=== PATIENT | female | born 1990 | race African-American/Black ===

== ENCOUNTER 2017-02-04 10:41 | Emergency (ER) | payer OTHER ==
[~2017-02-04] VITALS: Ht 177.8 cm; Wt 97.5 kg
[~2017-02-04 10:41] MED LIST: ADVAIR DISKUS1 UNIT INH; ALBUTEROL0.09 MG/A1 INH; ALBUTEROL1.25 MG/3 INH; DUONEB 3 MG/3 ML3 ML INH/SOL; PREDNISONE 10MG10 M1 PO; PREDNISONE 20MG20 MG PO; TESSALON PERLE100 MG PO
--- NOTE | 2017-02-04 11:33 | ED NECK/BACK PAIN COMPLAINT ---
History of Present Illness General Chief Complaint: General Adult Stated Complaint: "I CAN NOT MOVE" Source: patient Exam Limitations: no limitations Allergies Coded Allergies: NO KNOWN ALLERGIES (09/25/13) Reconcile Medications Albuterol Sulfate (Albuterol Sulfate Hfa) 0.09 MG/Actuation THANG 2 PUFF INH Q4- 6 PRN PRN SHORTNESS OF BREATH 90 MCG PER PUFF Albuterol Sulfate (Albuterol Sulfate Nebulizer Soln) 1.25 MG/3 ML CHAPO 1 UNIT INH Q4P PRN asthma Albuterol Sulfate/Ipratropiu (Duoneb) 3 MG/3 ML NEB 1 Vial INH/CHAPO 4 TIMES/DAY ASTHMA Benzonatate (Tessalon Perle) 100 MG SGL 1 CAP PO TID PRN COUGH Benzonatate (Tessalon Perle) 100 MG SGL 1 TAB PO TID PRN COUGH Cyclobenzaprine HCl 5 MG TABLET 1 TAB PO TIDPRN PRN MUSCLE SPASMS Fluticasone-Salmeterol (Advair 500-50 Diskus) 1 UNIT UNIT 1 PUFF INH BID asthma Methylprednisolone. (Medrol) 4 MG TAB.DS.PK 1 DP PO AD BACK PAIN 6 on day 1 then reduce by one tablet daily until gone Naproxen (Naprosyn) 500 MG TABLET 1 TAB PO BID PRN PAIN AND INFLAMMATION Prednisone 20 MG TAB 1 TAB PO BID BRONCHOSPASM Prednisone 10 MG TAB 1 TAB PO DAILY ASTHMA 4 TABS PO DAILYS X 3 DAYS 3 TABS X 3 DAYS 2 TABS X 3 DAYS 1 TAB PO X 3 DAYS Triage Note: PT TO ED WITH C/O LEFT LOWER BACK PAIN, STARTED YESTERDAY WITH "SORENESS, WENT TO WORK AND PROGRESSIVELY WORSE TOOK IBUPROFEN AND VICODEN LAST NIGHT, THIS AM WORSE" "IT'S LIKE SPASMS". "WORKED OUT EARLIER IN THE WEEK". Triage Nurses Notes Reviewed? yes : No Patient currently breastfeeds: No HPI: This patient is a 27-year-old female presented to the emergency department today for back pain. The patient reported that she worked out on Sunday or Sunday. She reported that she felt fine afterwards, but yesterday morning woke up feeling some pain in her lower back. She reported that when she woke up this morning she felt like she was unable to move. She reported that the pain gets up to, "1,000,000 out of 10." She reported that the pain is across her lower back, but mostly on the right. It is nonradiating. She reported the pain is sharp and is worse when she tries to walk or stand up straight. She also feels the pain when she is sitting. The pain has been constant since onset this morning. The patient reported that she has been unable to urinate because the pain has been so bad that she can't sit on the toilet. The patient denied any urinary burning, urgency, frequency, or blood in the urine. She denied any bowel or bladder incontinence. No saddle paresthesia. She denied any numbness or tingling in her extremities. No abdominal pain. She did report that she felt nauseous today when the pain was getting bad. No fevers or chills. The patient tried taking 2 ibuprofen tablets and one Vicodin which, "just made me pass out." (PRAVEEN URENA PA-C) Vital Signs & Intake/Output Vital Signs & Intake/Output Vital Signs Date Time Temp Pulse Resp B/P Pulse O2 O2 Flow FiO2 Ox Delivery Rate 02/04 1315 71 16 112/70 99 Room Air ED Intake and Output 02/05 0000 02/04 1200 Intake Total Output Total Balance Patient 215 lb Weight Past History Travel History Traveled to [place] past 21 day No Medical History Any Pertinent Medical History? see below for history Neurological: NONE EENT: NONE Cardiovascular: NONE Respiratory: asthma Gastrointestinal: NONE Hepatic: NONE Renal: NONE Musculoskeletal: NONE Psychiatric: NONE Endocrine: NONE Blood Disorders: SICKLE CELL TRAIT Cancer(s): NONE [employer]/Reproductive: endometriosis Surgical History Surgical History: non-contributory Psychosocial History What is your primary language Slovak Tobacco Use: Never used ETOH Use: denies use Illicit Drug Use: denies illicit drug use Family History Hx Contributory? No (PRAVEEN URENA PA-C) Review of Systems Review of Systems Constitutional: Reports: no symptoms. Eyes: Reports: no symptoms. Ears, Nose, Throat, Mouth: Reports: no symptoms. Respiratory: Reports: no symptoms. Cardiovascular: Reports: no symptoms. Gastrointestinal/Abdominal: Reports: see HPI. Musculoskeletal: Reports: see HPI. Skin: Reports: no symptoms. Neurological/Psychological: Reports: no symptoms. All Other Systems: Reviewed and Negative (PRAVEEN URENA PA-C) Physical Exam Physical Exam Neck: normal inspection, supple, full range of motion, normal alignment, no midline tenderness Comments: Unable to perform a comprehensive back examination due to this patient's uncooperation with the examination and current pain level. Well-developed well-nourished person in mild distress HEENT: Normal EENT exam, head normocephalic, moist mucous membranes Pupils equally round and reactive to light. Back: Normal inspection with no bony or muscular deformities. No step-offs of the spine. No midline tenderness. Right-sided lumbar paraspinal musculature tenderness to palpation with muscular spasm noted Respiratory: No respiratory distress. Speaking in full sentences Extremity: Normal equal pulses Neuro: Alert oriented x3, cranial nerves II through XII grossly intact. Skin: No appreciable rash on exposed skin, skin is warm and dry. Psych: Mood and affect is normal (PRAVEEN URENA PA-C) Progress Differential Diagnosis: AAA, aortic dissection, cauda equina syn, herniated disc , myofascial strain, pyelo/UTI, sciatica, spinal cord inj, thoracic outlet syn, T/L spine injury, ureterolithiasis Plan of Care: Orders Procedure Date/time Status URINE 02/04 1210 Complete URINALYSIS 02/04 1210 Complete Laboratory Tests 02/04/17 1245: Urine Color YEL, Urine Clarity CLEAR, Urine pH 6.0, Ur Specific [place] >= 1.030 , Urine Protein NEG, Urine Ketones NEG, Urine Nitrite NEG, Urine Bilirubin NEG, Urine Urobilinogen 0.2, Ur Leukocyte Esterase NEG, Ur Microscopic EXAM NOT REQUIRED, Urine Hemoglobin NEG, Urine Glucose NEG, Urine Test NEGATIVE Comments: 02/04/2017 12:46:50 PM: The patient reported that she is feeling slightly better. She is able to get up and walk to the bathroom to provide a urine sample. (PRAVEEN URENA PA-C) Departure Departure Disposition: HOME OR SELF CARE Condition: Stable Clinical Impression Primary Impression: Muscle strain Referrals: JAMES BENSON,ELENI Richardson PATIENT HAS NO PRIMARY CARE DR (PCP) Additional Instructions: Please rest and avoid any strenuous activity or heavy lifting. Gentle stretching and heat to the area. Take a muscle relaxant as prescribed. Take medication for pain as prescribed. Take Medrol Dosepak as directed. Please follow-up with the orthopedic physician whose information has been provided to this packet for further evaluation. Return for any worsening symptoms or concerns. Departure Forms: Customer Survey General Discharge Information Prescriptions: Current Visit Scripts Methylprednisolone. (Medrol) 1 DP PO AD #1 DP 6 on day 1 then reduce by one tablet daily until gone Cyclobenzaprine HCl 1 TAB PO TIDPRN PRN MUSCLE SPASMS #12 TAB Naproxen (Naprosyn) 1 TAB PO BID PRN PAIN AND INFLAMMATION #20 TAB (AYANNA BURNETTE,PRAVEEN) PA/RESIDENTIAL DIRECTOR Co-Sign Statement Statement: ED Attending supervision documentation- [] I saw and evaluated the patient. I have also reviewed all the pertinent lab results and diagnostic results. I agree with the findings and the plan of care as documented in the PA's/RESIDENTIAL DIRECTOR's documentation. x I have reviewed the ED Record and agree with the PA's/RESIDENTIAL DIRECTOR's documentation. [] Additions or exceptions (if any) to the PAs/RESIDENTIAL DIRECTOR's note and plan are summarized below: [] (VALENTINA BENSON,SOWMYA)
[2017-02-04] MEDS ORDERED: NAPROSYN500 M1 PO (13:14)
[2017-02-04] MEDS ORDERED: CYCLOBENZAPRINE5 M2 PO (13:14)
[2017-02-04] MEDS ORDERED: MEDROL4 M2 PO (13:14)
[2017-02-04 13:15] VITALS: BP 112/70
== END 2017-02-04 13:41 ==
LOC: ERH 10:41
DX: S39.012A Strain of muscle, fascia and tendon of lower back, initial encounter (principal); X58.XXXA Exposure to other specified factors, initial encounter; Y93.89 Activity, other specified; Y92.9 Unspecified place or not applicable
CPT/HCPCS: 81003; 81025; 96372; J2930